=== PATIENT | male | born 1980 | race Caucasian/White ===

== ENCOUNTER → 2024-11-11 | Outpatient (CLI) | payer OTHER ==
[2024-11-12 07:07] LABS: MUMPS VIRUS IGG ANTIBODY >300.0 AU/mL (Immune >10.9); RUBEOLA (MEASLES) IGG >300.0 AU/mL (Immune >16.4); VARICELLA ZOSTER IGG AB TITER Reactive (Non Reactive)
== END | disposition home or self-care (01) ==
LOC: LABMN 11:29
PROVIDERS: ATTEND Internal Medicine
DX: Z02.1 Encounter for pre-employment examination (principal)
CPT/HCPCS: 86706; 86735; 86762; 86765; 86787